=== PATIENT | female | born 1985 | race Caucasian/White ===

== ENCOUNTER 2017-05-10 02:58 | Emergency (ER) | payer OTHER ==
[~2017-05-10] VITALS: Ht 152.4 cm; Wt 59.4 kg
[2017-05-10] MEDS ORDERED: BUPIVACAINE PF 0.75% 10 ML VIAL ONE (03:09)
[2017-05-10] MEDS ORDERED: LIDOCAINE 2%/EPI 1:100,000 20 ML VIAL. ONE (03:10)
[2017-05-10 03:30] VITALS: BP 116/63
[2017-05-10] MEDS ORDERED: LIDOCAINE 2%/EPI 1:100,000 20 ML VIAL. IJ ONE (03:30)
[2017-05-10] MEDS ORDERED: TRAM-48 PO (03:33)
[2017-05-10] MEDS ORDERED: AMOX500C PO (03:33)
--- NOTE | 2017-05-10 03:33 | PHYS DOC ---
Past History Past Medical History: No Pertinent History Past Surgical History: Tubal ligation Smoking: Cigarettes Alcohol Use: Heavy Drug Use: Marijuana Adult General Chief Complaint Chief Complaint: Toothache HPI HPI Patient is a 31-year-old female who presents to the ER today secondary to severe acute onset left lower molar dental pain that woke her from sleep. Patient denies other symptomatology. Patient has any fevers shakes chills nausea vomiting diarrhea chest pain shortness of breath cough cold or rhinorrhea. Patient denies any past medical history. Patient has no history of hypertension diabetes liver longer kidney problems. Review of systems: Constitutional: Denies fever or chills Eyes: Denies change in visual acuity, redness, or eye pain HENT: Denies nasal congestion or sore throat Respiratory: Denies cough or shortness of breath All other systems were reviewed and found to be within normal limits, except as documented in this note. Physical exam: Constitutional: Well developed, well nourished, no acute distress, non-toxic appearance. HENT: Normocephalic, atraumatic, bilateral external ears normal, nose normal. Eyes: PERRLA, EOMI, conjunctiva normal, no discharge. Neck: Normal range of motion, no tenderness, supple, no stridor. Cardiovascular: Heart rate regular rhythm, Lungs & Thorax: Bilateral breath sounds clear to auscultation Abdomen: No abdominal distention. Skin: Warm, dry, no erythema, no rash. Back: Normal spinal curvature Extremities: No tenderness, no cyanosis, no clubbing, ROM intact, no edema. Neurologic: Alert and oriented X 3, normal motor function, normal sensory function, no focal deficits noted. Psychologic: Affect normal, judgement normal, mood normal. Patient's ER physical exam was most remarkable: Patient's severe tenderness to palpation to her left lower molars. There is no abscess formation or erythema around the gums. Patient has no trismus. Patient appears to be in a significant amount discomfort and is crying. Procedure: A infra-alveolar nerve block was performed utilizing 3 mL of 1% bupivacaine with epinephrine. Patient tolerated the procedure well and has had significant improvement in her discomfort. Assessment and plan: 1. 31-year-old female who presents here today with acute onset dental pain that has resolved after a dental nerve block. Patient is resting comfortably and feels much better. Patient will be given a prescription for antibiotics, amoxicillin, Ultram, and is to continue her ibuprofen at home. Patient will be instructed to follow-up with a dentist in the morning. Current Medications Current Medications Current Medications Medications (Trade) Dose Ordered Sig/Steve Start Time Stop Time Status Last Admin Dose Admin Bupivacaine HCl (Sensorcaine Pf 0.75%) 10 ml STK-MED ONCE 05/10/17 03:09 05/10/17 03:10 DC Lidocaine/ Epinephrine (Xylocaine 2%-Epi 1:100,000) 20 ml 1X ONCE 05/10/17 03:30 05/10/17 03:31 UNV Allergies Allergies Allergies Coded Allergies Type Severity Reaction Last Updated Verified No Known Drug Allergies 02/09/16 No Current Patient Data Vital Signs Vital Signs Date Time Temp Pulse Resp B/P (MAP) Pulse Ox O2 Delivery O2 Flow Rate FiO2 05/10/17 02:58 97.6 85 26 100 Room Air EKG EKG [] Radiology/Procedures Radiology/Procedures [] Course & Med Decision Making Course & Med Decision Making Pertinent Labs and Imaging studies reviewed. (See chart for details) [] Dragon Disclaimer Dragon Disclaimer This electronic medical record was generated, in whole or in part, using a voice recognition dictation system. Departure Departure: Impression: Primary Impression: Toothache Disposition: HOME, SELF-CARE Condition: IMPROVED Referrals: PCP,NO (PCP) Patient Instructions: Toothache-Brief Scripts Tramadol Hcl (ULTRAM) 50 Mg Tablet 50 MG PO PRN Q6HRS Y for PAIN, #20 TAB Prov: OYU LOPEZ MD 05/10/17 Amoxicillin (AMOXICILLIN) 500 Mg Capsule 1 CAP PO TID, #30 CAP Prov: YOU LOPEZ MD 05/10/17 YOU LOPEZ MD May 10, 2017 03:33
[2017-05-10] MEDS ORDERED: START PACK - traMADol 1 STARTPACK TABLET PO ONE ×2 (03:37→03:45)
== END 2017-05-10 03:46 | disposition home or self-care (01) ==
LOC: ER 02:58
DX: K08.89 Other specified disorders of teeth and supporting structures (principal); F17.210 Nicotine dependence, cigarettes, uncomplicated; F12.10 Cannabis abuse, uncomplicated; F10.10 Alcohol abuse, uncomplicated
CPT/HCPCS: 64400; 64450; 81025; 99284-25

== ENCOUNTER 2017-11-13 12:07 | Emergency (ER) | payer OTHER ==
[~2017-11-13 12:07] MED LIST: AMOX500C PO; TRAM-48 PO
[2017-11-13 12:11] VITALS: BP 130/87
[2017-11-13] MEDS ORDERED: HYDR-2758 PO (12:40)
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
[2017-11-13 12:43] LABS: PREG TEST PT QUAL NEGATIVE (NEG)
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
== END 2017-11-13 14:08 | disposition home or self-care (01) ==
LOC: ER 12:07
DX: M54.2 Cervicalgia (principal); M54.6 Pain in thoracic spine; M25.512 Pain in left shoulder; F17.210 Nicotine dependence, cigarettes, uncomplicated; F10.20 Alcohol dependence, uncomplicated; V89.2XXA Person injured in unspecified motor-vehicle accident, traffic, initial encounter; Y93.I9 Activity, other involving external motion; Y99.8 Other external cause status; Y92.488 Other paved roadways as the place of occurrence of the external cause
CPT/HCPCS: 72125; 72128; 73030; 84703; 99285-25